=== PATIENT | female | born 1970 | race African-American/Black ===

== ENCOUNTER 2017-02-02 13:29 | Inpatient (IN) | payer MEDICAID ==
[2017-02-02] VITALS (11 sets, daily range): BP systolic 106–132; BP diastolic 52–64; Ht 162.6 cm; Wt 106.4 kg
[~2017-02-02] VITALS: Ht 162.6 cm; Wt 106.4 kg
--- NOTE | 2017-02-02 00:02 | NUR ---
VITAL SIGNS TAKEN AT THIS TIME. IV SITE INSPECTED, NO REDNESS, SWELLING, RASH OR INFILTTATION NOTED. IV RATE CHANGED TO 75ML/HR. NURSE REMAINS AT BEDSIDE.
[2017-02-02 14:28] LABS: BASOPHILS 0.3 % (0-2); EOSINOPHILS 1.2 % (0-7); IMMATURE GRANULOCYTES 0.8 % (0-5); LYMPHOCYTES 22.4 % (15-50); MCHC 26.4 g/dL (31.0-37.0); MCV 59.9 fL (80.0-100.0); MEAN PLATELET VOLUME 8.6 fL (7.4-10.4); NEUTROPHILS 67.3 % (40-80); PLATELET COUNT 473 10x3/uL (130-400); RBC 2.72 10x6/uL (4.00-5.40); RDW 20.3 % (11.5-14.5); WBC 14.9 10x3/uL (4.8-10.8)
[2017-02-02 14:37] LABS: HEMATOCRIT 16.3 % (36.0-48.0); HEMOGLOBIN 4.3 g/dL (12-16); MCH 15.8 pg (26.0-34.0)
[2017-02-02 14:40] LABS: ALBUMIN 3.4 g/dL (3.4-5.0); ANION GAP 13.7 mmol/L (8-16); BILIRUBIN - TOTAL 0.29 mg/dL (0.2-1.3); CALCIUM 8.7 mg/dL (8.5-10.1); CARBON DIOXIDE 23.8 mmol/L (21.0-32.0); CREATININE - SERUM 0.9 mg/dL (0.6-1.3); POTASSIUM - SERUM 3.5 mmol/L (3.5-5.1)
[2017-02-02 15:28] LABS: APTT 29.4 SECONDS (22.8-39.4); INR 1.04 (0.85-1.17); PROTIME 13.4 SECONDS (11.6-15.0)
--- NOTE | 2017-02-02 16:56 | NUR ---
RECEIVED FROM ER VIA WHEELCHAIR. ORIENTED TO ROOM 1278. DESIRES PERICARE AT THIS TIME SECONDARY TO VAGINAL BLEEDING. ITEMS GIVEN FOR SELF CLEANING. PERIPADS AND DISPOSABLE UNDERWEAR GIVEN. CONTACTED DR ORTIZ FOR ADDITIONAL ORDERS.
--- NOTE | 2017-02-02 17:44 | NUR ---
PT DECLINES SECOND IV LINE FOR BLOOD TRANSFUSION. CONTACTED DR ORTIZ. TO GIVE PREMARIN IV PUSH. THEN HANG THE BLOOD. GIVE NEXT DOSE PREMARIN BETWEEN UNITS OF BLOOD. CONTACTED SOFÍA PHARMACIST TO CONFIRM. SHOULD NOT BE A PROBLEM IF LINE IS FLUSHED BETWEEN MEDICATION AND UNIT OF BLOOD. AWARE, NOT TO INFUSE BLOOD AND MEDICATION TOGETHER.
--- NOTE | 2017-02-02 18:05 | NUR ---
AFTER COMPLETING ADMISSION ASSESSMENTS, PT REPORTS HAVING HAD A BLACK KENYA RING THAT SHE REMOVED WHEN HAVING AN IV PLACED IN THE EMERGENCY ROOM. CONTACTED ER STAFF AND NO RING HAS BEEN FOUND. PT LOOKED THROUGH BAG OF CLOTHING SHE BROUGHT FROM ER AND HAS NOT LOCATED IT AT THIS TIME OF 1830. WILL CONTACT INTERVENTIONAL CARDIOLOGIST.
--- NOTE | 2017-02-02 18:15 | NUR ---
PREPARING TO GIVE PREMARIN IVP, 500 ML NS BAG HUNG, IV OPEN WITH INFUSION OF NS INTO LEFT ANTECUBITAL. PT C/O INCREASED BURNING AT IV SITE. IV FLUIDS SLOWED AND PATIENT STILL C/O BURNING AT IV SITE. PREMARIN NOT GIVEN. PLAN RESITE IV.
--- NOTE | 2017-02-02 18:30 | NUR ---
ATTEMPTED TO START IV IN RIGHT WRIST WITH 18 G CATH WITH RETURN OF BLOOD. CATHETER WOULD NOT THREAD. CATH REMOVED. WILL HAVE SECOND NURSE ATTEMPT IV.
--- NOTE | 2017-02-02 18:44 | NUR ---
Liane HERRMANN RN ATTEMPTED TO START IV IN RIGHT HAND WITH 18 G CATH. NO FLASH RETURNED AND CATH WAS REMOVED. WILL HAVE ON-COMING RN ATTEMPT START.
--- NOTE | 2017-02-02 19:00 | NUR ---
Liane CORTES, BRADLY ON L&D. ASKED SOCIAL SERVICE WORKER TO ATTEMPT IV START. ATTEMPTED X 1 IN LEFT FA WITH 20 G 1 03/29 LENGHT WITHOUT SUCCESS. SOCIAL SERVICE WORKER WILL LOOK FOR 1 INCH IV CATH IN OR AND ATTEMPT SECOND TIME.
--- NOTE | 2017-02-02 19:00 | NUR ---
PATIENT REPORT RECEIVED FROM AM SHIFT TO ASSUME PATIENT CARE.
--- NOTE | 2017-02-02 19:10 | NUR ---
PATIENT MEGHAN BALLESTEROS IN BED AT THIS TIME, ANESTHESIA AT BEDSIDE ATTEMPTING TO START AN IV. PATIENT STATES THAT HER IV FROM THE ER IS BOTHERING HER AND SHE HAS SOME INTERMITTENT CHEST PAIN 3/10. PT STATES THAT IT MAY BE ANXIETY.
--- NOTE | 2017-02-02 19:36 | NUR ---
PREMARIN 25 MG GIVEN SLOW IVP OVER 5 MINS; 1 ML/MIN WITH NS INFUSING PER ALARIS PUMP. IV DECREASED TO 10 ML/HR AFTER COMPLETION OF IVP. JAYDON WELL WITHOUT COMPLAINTS OF PAIN OR DISCOMFORT AT IV SITE. RECEIVED PHENERGAN 25 MG PO EARLIER FOR PREVENTION OF NAUSEA. PT VERBALIZED UNDERSTANDING OF MEDICATION AND POSSIBLE SIDE EFFECTS. SIDE RAILS UP X 2, CALL LIGHT IN REACH.
--- NOTE | 2017-02-02 20:06 | NUR ---
PATIENT PRE MEDICATED WITH TYLENOL 1000MG PO PER MD ORDER
--- NOTE | 2017-02-02 20:07 | NUR ---
PATIENT PRE MEDICATED WITH BENADRYL 50MG PO PER MD ORDERS.
--- NOTE | 2017-02-02 20:22 | NUR ---
BLOOD FROM LAB REVIEWED WITH ELVIRA HERNANDEZ TO INCLUDE PATIENT ID BAND, PT 1970 PATIENT BLOOD BAND NUMBER [id number], PT BLOOD TYPE, OPOS, UNIT NUMBER [id number] ADN UNIT EXPIRATION DATE 02/13/2017.
--- NOTE | 2017-02-02 20:24 | NUR ---
PRE TRANSFUSION VITALS SIGNS TAKEN AT THIS TIME.
--- NOTE | 2017-02-02 20:28 | NUR ---
BLOOD TRANSFUSION STARTED AT THIS TIME AT 50ML/HR. PATIENT TEACHING ON REACTION SIGNS AND SYMPTOMS. PT VERBALIZES UNDERSTANDING.
--- NOTE | 2017-02-02 20:43 | NUR ---
PATIENT VITAL SIGNS TAKEN, IV SITE INSPECTED WITH NO REDNESS OR INFILTRATION NOTED. PT DENIES ANY SYMPTOMS OF REACTION, RATE CHANGED TO 75ML/HR AT THIS TIME.
--- NOTE | 2017-02-02 20:58 | NUR ---
PATIENT STATES A SLIGHT TINGLING TO HER LEFT HAND AT THIS TIME, NO OTHER PROBLEMS IDENTIFIED. IV SITE INSPECTED WITH NO REDNESS OR RASH NOTED. VITAL SIGNS TAKEN. IV RATE CHANGED TO 150ML/HR.
--- NOTE | 2017-02-02 21:28 | NUR ---
PATIENT RESTING QUIETLY WITH EYES CLOSED, EASILY AROUSED TO VERBAL. DENIES ANY PROBLEMS AT THIS TIME. VS TAKEN, IV SITE INSPECTED, NO REDNESS OR RASH OR INFILTRATION NOTED. INFUSION REMAINS AT 150ML/HR PT DENIES NEEDS AT THIS TIME.
--- NOTE | 2017-02-02 21:58 | NUR ---
PATIENT RESTING QUIETLY WITH EYES CLOSED. IV SITE INSPECTED, NO REDNESS,SWELLING OR RASH NOTED. VS TAKEN AND BLOOD TRANSFUSION RATE CHANGED TO 200ML/HR.
--- NOTE | 2017-02-02 22:55 | NUR ---
BLOOD TRANSFUSION COMPLETED, VOLUME INFUSED 359ML. TUBING DISCONNECTED AND IV FLUSHED WITH 10ML NS. PATIENT HAS HAD NO REACTION TO THE TRANSFUSION. VS TAKEN. PT RESTING QUIETLY IN BED, BED LOCKED IN LOW POSITION, TRAY TABLE AND CALL CALHOUN IN REACH.
--- NOTE | 2017-02-02 23:13 | NUR ---
PATIENT FARTUN PAD WITH SMALL AMOUNT OF BLOOD, PT DOESNT DESIRE TO CHANGE IT AT THIS TIME.
--- NOTE | 2017-02-02 23:40 | NUR ---
PATIENT IDENTIFICATION AND BLOOD UNIT VERIFIED WITH ELVIRA WHEELER TO INCLUDE PATIENT NAME, , WRIST BLOOD BAND NUMBER [id number], O POS, BLOOD UNIT# [id number], EXPIRATION DATE 02/13/17.
--- NOTE | 2017-02-02 23:47 | NUR ---
PRE TRANSFUSION VITAL SIGNS TAKEN AT THIS TIME.
--- NOTE | 2017-02-02 23:49 | NUR ---
BLOOD TRANSFUSION STARTED AT THIS TIME AT 50ML/HR
[2017-02-03] VITALS (40 sets, daily range): BP systolic 101–137; BP diastolic 51–83
--- NOTE | 2017-02-03 00:02 | NUR ---
VITAL SIGNS TAKEN, IV SITE INSPECTED, NO REDNESS,SWELLING, RASH OR INFILTRATION NOTED. RATE CHANGED TO 75ML/HR. THIS NURSE REMAINS AT BEDSIDE.
--- NOTE | 2017-02-03 00:17 | NUR ---
VITAL SIGNS TAKEN. IV SITE INSPECTED, NO REDNESS, SWELLING, RASH OR INFILTRATION NOTED. PT EXHIBITS NO SIGNS OF BLOOD TRANSFUSION REACTION. RATE CHANGED TO 150ML/HR. THIS NURSE REMAINS AT THE BEDSIDE.
--- NOTE | 2017-02-03 00:32 | NUR ---
VITAL SIGNS TAKEN. IV SITE INSPECTED, NO REDNESS, SWELLING, RASH OR INFILTRATION NOTED. PATIENT REQUESTING SOME SHERBERT. THIS NURSE REMAINS AT BEDSIDE.
--- NOTE | 2017-02-03 00:40 | NUR ---
ELVIRA HERNANDEZ BROUGHT SHERBERT TO PATIENT AT THIS TIME PER REQUEST.
--- NOTE | 2017-02-03 00:47 | NUR ---
VITAL SIGNS TAKEN. IV SITE INSPECTED, NO REDNESS,SWELLING, RASH OR INFILTRATION NOTED. BED LOCKED IN LOW POSITION, CALL CALHOUN AND TRAY TABLE IN REACH. PT ENCOURAGED TO CALL WITH ANY NEEDS.
--- NOTE | 2017-02-03 01:19 | NUR ---
PATIENT ASSISTED UP TO BATHROOM AT THIS TIME, VOIDED 400ML CLEAR YELLOW URINE. PAD WITH SMALL AMOUNT OF BLOOD NOTED. PATIENT BACK TO BED. BED LOCKED IN LOW POSITION, CALL CALHOUN AND TRAY TABLE IN REACH. PT ENCOURAGED TO CALL WITH ANY NEEDS
--- NOTE | 2017-02-03 01:31 | NUR ---
VOIDED 400CC IN [facility]. STATES SHE IS HAVING ABD. CRAMPING. REPORTS THAT SHE CHANGED HER FARTUN PAD AND IT WAS LESS THAN 1/2 SATURATED. OFFERED NOURISHMENTS THAT WERE AVAILABLE AND PT. DECLINED.
--- NOTE | 2017-02-03 01:47 | NUR ---
DR ORTIZ CALLED AND INFORMED OF PATIENT REQUEST FOR MEDICATION FOR ABDOMINAL CRAMPING PAIN. NEW ORDERS RECEIVED FOR TORADOL 30MG IVP Q 6HRS PRN AND DEMEROL 25MG IM WITH PHENERGAN 12.5 MG IM FOR BREAKTHROUGH PAIN.
--- NOTE | 2017-02-03 02:05 | NUR ---
PHENERGAN 25MG PO ADMINISTERED AT THIS TIME PRIOR TO PREMARIN PER MD ORDERS.
--- NOTE | 2017-02-03 02:45 | NUR ---
BLOOD TRANSFUSION COMPLETED, IV FLUSHED WITH 10ML NS. PREMARIN 25 MG IN 5ML NS GIVEN SLOW IVP OVER 5 MINUTES, IV FLUSHED WITH 10ML NS AFTER ADMINISTRATION
--- NOTE | 2017-02-03 03:40 | NUR ---
VERIFIED PATIENT INFORMATION AND BLOOD UNIT WITH ELVIRA WHEELER AT PATIENTS BEDSIDE TO INCLUDE PATIENT NAME, , BLOOD WRIST BAND #[id number], O POS, BLOOD UNIT# [id number] EXPIRATION DATE 02/22/2017.
--- NOTE | 2017-02-03 03:45 | NUR ---
PRE-TRANSFUSION VITALS TAKEN AT THIS TIME
--- NOTE | 2017-02-03 04:08 | NUR ---
VITAL SIGNS TAKEN, PT RESTING QUIETLY WITH EYES CLOSED, EASILY AROUSED TO VERBAL. STATES THAT HER PAIN IS UNCHANGED. ENCOURAGED HER TO REPOSITION, EXTRA PILLOW PROVIDED. IV SITE INSPECTED, NO REDNESS,SWELLING, RASH OR INFILTRATION NOTED. IV RATE CHANGED TO 75ML/HR
--- NOTE | 2017-02-03 04:22 | NUR ---
PATIENT SLEEPING, AUDIBLE SNORING NOTED. VITAL SIGNS TAKEN. IV SITE INSPECTED, NO REDNESS, SWELLING, RASH OR INFILTRATION NOTED.
--- NOTE | 2017-02-03 04:37 | NUR ---
PATIENT SLEEPING, EASILY AROUSED TO VERBAL. VITAL SIGNS TAKEN. IV SITE INSPECTED, NO REDNESS, SWELLING, RASH OR INFILTRATION NOTED. IV RATE CHANGED TO 150 ML/HR
--- NOTE | 2017-02-03 04:52 | NUR ---
PATIENT SLEEPING. RESPIRATIONS EVEN AND NON LABORED. VITAL SIGNS TAKEN AND IV SITE INSPECTED. NO REDNESS, SWELLING, RASH OR INFILTRATION NOTED. CALL CALHOUN AND TRAY TABLE IN REACH
--- NOTE | 2017-02-03 05:22 | NUR ---
PATIENT SLEEPING, IV SITE INSPECTED, NO REDNESS, SWELLING, RASH OR INFILTRATION NOTED. NO SIGNS OR SYMPTOMS OF TRANSFUSION REACTION NOTED.
--- NOTE | 2017-02-03 06:26 | NUR ---
BLOOD TRANSFUSION COMPLETED, IV LINE FLUSHED WITH NS AND DC'D. SALINE LOCK REMAINS IN PLACE. VITAL SIGNS TAKEN. PATIENT DENIES NEEDS.
--- NOTE | 2017-02-03 06:43 | NUR ---
PATIENT INFORMATION AND BLOOD UNIT INFORMATION VERIFIED WITH ELVIRA WHEELER TO INCLUDE PATIENT NAME, , WRIST BAND #[id number], O POS, BLOOD UNIT# [id number], EXPIRATION DATE 02/15/17.
--- NOTE | 2017-02-03 06:46 | NUR ---
PRE-TRANSFUSION VITAL SIGNS TAKEN AT THIS TIME
--- NOTE | 2017-02-03 06:48 | NUR ---
BLOOD TRANSFUSION INITIATED AT 50ML/HR. THIS NURSE REMAINS AT BEDSIDE
--- NOTE | 2017-02-03 07:03 | NUR ---
VITAL SIGNS TAKEN, IV SITE INSPECTED, NO REDNESS, SWELLING, RASH OR INFILTRATION NOTED. IV RATE CHANGED TO 75ML/HR.
--- NOTE | 2017-02-03 07:14 | NUR ---
BEDSIDE REPORT TO AM SHIFT TO ASSUME PATIENT CARE.
--- NOTE | 2017-02-03 07:15 | NUR ---
ASSUMED CARE OF THIS PATIENT. SHIFT ASSESSMENT COMPLETED. ALERT AND ORIENTED. 3/10 CRAMPING. DENIES NEEDING ANYTHING. TRACE PRETIBIAL EDEMA NOTED IN LEFT LEG. ENCOURAGED FREQUENT CHANGES OF POSITION AND MOVEMENT OF LEGS. VERBALIZED UNDERSTANDING. 4TH BAG PRBC INFUSING WITHOUT DIFF. NO SIGNS OF ADVERSE REACTION. INFUSING AT 75 ML/HR PER ALARIS PUMP. SIDE RAILS UP X 2, CALL LIGHT IN REACH.
[2017-02-03] MEDS ORDERED: ACETAMINOPHEN500 M1 PO (07:18)
--- NOTE | 2017-02-03 07:54 | NUR ---
UP TO BATHROOM FOR ORAL AND PERICARE PER SELF. IV BLOOD PRODUCT INCREASED TO 175 ML/HR PER ALARIS PUMP. TEMP AND VS NORMAL LIMITS. NO ADVERSE REACTIONS NOTED. REGULAR DIET SERVED. SITTING ON EDGE OF BED. NO REQUESTS. CALL LIGHT IN REACH. PARTIAL LINEN CHANGE WAS COMPLETED.
--- NOTE | 2017-02-03 08:32 | NUR ---
c/0 3-10 FRONTAL HEADACHE "LIKE A COLD HEADACHE". DISCUSSED PAIN MANAGEMENT OPTIONS. STATES "I'LL LET YOU KNOW IF I WANT SOMETHING." REQUESTED LIGHTS ON LOW. WATCHING TV. SIDE RAILS UP X 2. CALL LIGHT IN REACH. [place] HAT EMPTIED. 300 ML URINE WITH TWO DOLLAR SIZE DARK RED CLOTS IN URINE. PERIPAD WAS CHANGED BY PATIENT. SMALL AMOUNT BRIGHT RED BLOOD NOTED ON PERIPANTS AND PAD. NO SATURATION OF PAD NOTED. THIS WILL BE PAD # 2 SINCE ADMIT.
--- NOTE | 2017-02-03 10:10 | NUR ---
BLOOD TRANSFUSION COMPLETE. NEW IV LINE HUNG IN PREPARATION FOR 5TH PRBC UNIT. RECEIVED LASIX 20 MG PO ORDERED. LUNGS CLEAR. VS OBTAINED. C/O CONTINUE FRONTAL ROBLES AND REQUEST PAIN MEDICATION. WAITING ON PHARMACY TO BRING TO UNIT. SIDE RAILS UP X 2, CALL LIGHT IN REACH.
--- NOTE | 2017-02-03 10:25 | NUR ---
CONTACTED PHARMACY AND REQUESTED FIORICET ORDERED BY . THEY WILL BRING TO L&D. PT NOTIFIED.
--- NOTE | 2017-02-03 10:48 | NUR ---
FIORICET 2 TABS GIVEN PO FOR RELIEF OF FRONTAL ROBLES. 5TH UNIT PRBC STARTED AT THIS TIME. PLACED ON ALARIS PUMP AT 75 ML/HR FOR INITIAL TRANSFUSION. SIDE RAILS UP X 2, CALL LIGHT IN REACH. RN REMAINS AT BEDSIDE FOR ASSESSMENT.
--- NOTE | 2017-02-03 11:14 | NUR ---
STAYED IN ROOM WITH PT DURING INITIAL TRANSFUSION START. AROUSED FROM SLEEP FOR TEMP AND VS AT THIS TIME. ROBLES IS NOW 4/. DENIES PROBLEM. NO ITCHING, RASH NOTED. SIDERAILS UP X 2, CALL LIGHT IN REACH. ENCOURAGED TO CONTINUE TO REST OR SLEEP NEEDED. BLOOD INCREASED TO 150 ML/HR ON ALARIS PUMP.
--- NOTE | 2017-02-03 11:50 | NUR ---
AROUSES EASILY FROM SLEEP. SAYS ROBLES IS NOW 05/05. FEELS DROWSY STATES "THAT'S PROBABLY WHY I'M SLEEPING". TO CALL IF ANYTHING IS NEEDED. BLOOD INFUSING WITHOUT DIFFICULTY. NO ADVERSE REACTIONS NOTED. SIDERAILS UP X 2, CALL LIGHT IN REACH.
--- NOTE | 2017-02-03 12:05 | NUR ---
SITTING UP IN BED EATING LUNCH.
--- NOTE | 2017-02-03 13:23 | NUR ---
UNIT 5 PRBC TRANSFUSION COMPLETED. NEW Y-TUBE SET HUNG AND NS INFUSING TO FLUSH IV PORT PRIOR TO NEXT UNIT. SITTING UP IN BED VISITORS IN ROOM. NO REQUEST OR PROBLEMS AT THIS TIME. SIDERAILS UP X 2. CALL LIGHT IN REACH. INSTRUCTED SHE HAS ONE MORE UNIT TO INFUSE THEN TWO HOUR HCT THEN SHE CAN GO HOME. VERBALIZED UNDERSTANDING. DECLINES NEED TO VOID.
--- NOTE | 2017-02-03 13:37 | NUR ---
STATES "MY CHEST IS BURNING" POINTING TO UPPER LEFT CHEST AREA. SAYS IT'S NOT HER SKIN. "LIKE MY HEART". UNABLE TO ASSIGN PAIN NUMBER STATES "IT'S LIKE A CRAMP." ALSO SAID IT MIGHT BE LIKE INDIGESTION. 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 LUNGS CLEAR, HEART RATE REG, PULSE OX 100%. NO DISTRESS NOTED. HOB IN HIGH FOWLERS. ATE ROASTBEEF FOR LUNCH. WILL CONTACT
--- NOTE | 2017-02-03 13:48 | NUR ---
TALKED TO DR ORTIZ. ORDERS RECIEVED FOR GI COCKTAIL.
--- NOTE | 2017-02-03 14:00 | NUR ---
6TH UNIT PRBC STARTED AT 75 ML PER ALARIS PUMP. RN STAYED IN ROOM DURING INITIAL TRANSFUSION.
--- NOTE | 2017-02-03 14:12 | NUR ---
ASSISTED UP TO BATHROOM TO VOID. TOLERATED WELL. NO C/O OTHER THAN "IT DOES FEEL LIKE HEARTBURN, LIKE AIR RIGHT HERE" POINTING TO LOWER ESOPHAGUS AREA. WAITING ON GI COCKTAIL FROM PHARMACY. VOIDED 300 CC YELLOW URINE. SCANT BLOOD ON PAD. THIS WAS PAD # 3 SINCE ARRIVAL.
--- NOTE | 2017-02-03 14:29 | NUR ---
SITTING ON EDGE OF BED. NO ADVERSE TRANSFUSION REACTIONS SYMPTOMS NOTED. ALARIS PUMP INCREASED TO 150 ML/HR. RECEIVED GI COCKTAIL FROM PHARMACY.
--- NOTE | 2017-02-03 14:49 | NUR ---
SITTING UP IN EDGE OF BED. SAYS THROAT IS NOW NUMB. DENIES BURNING IN CHEST. RE-EXPLAINED THAT IS PURPOSE OF THE GI COCKTAIL. VERBALIZED UNDERSTANDING. DENIES NEEDING ANYTHING AT THIS TIME.
--- NOTE | 2017-02-03 15:47 | NUR ---
LAYING IN BE ON RIGHT SIDE. APPROX 100 ML BLOOD LEFT TO INFUSE. DENIES PROBLEMS OR NEEDING ANYTHING AT THIS TIME. SIDERAILS UP X 2. CALL LIGHT IN REACH. DENIES HEADACHE.
--- NOTE | 2017-02-03 16:15 | NUR ---
6TH UNIT PRBC TRANSFUSION COMPLETED. VS OBTAINED. NO ADVERSE REACTIONS NOTED. LUNGS CLEAR. DENIES PAIN OR ANY COMPLAINTS. DESIRES TO WAIT ON SHOWER AFTER GETTING HOME. DECLINED FLU VACCINE STATING SHE NEEDS SECOND HEP B VACCINE AND "THEY" TOLD HER TO WAIT ON FLU VACCINE. 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 VERBAL AND WRITTEN INFORMATION WAS GIVEN REGARDING PROVERA PO PRESCRIBED BY DR ORTIZ. ALSO INFORMED SHE WILL HAVE MOTRIN RX FOR CRAMPING. EXPRESSED SATISFACTION WITH THIS FOR PAIN MANAGEMENT OF CRAMPS. PLAN DC HOME IN TWO HOURS AFTER HCT HAS BEEN DRAWN BY LAB.
--- NOTE | 2017-02-03 16:36 | NUR ---
IV DC'D WITH CATH TIP INTACT. SITTING UP IN BED. REQUESTED LIGHTS ON LOW. WAITING ON DINNER. SIDERAILS UP X 2, CALL LIGHT IN REACH.
[2017-02-03] MEDS ORDERED: IBUPROFEN600 MG PO (16:48)
[2017-02-03] MEDS ORDERED: PROVERA10 MG PO (16:54)
[2017-02-03] MEDS ORDERED: IBUPROFEN800 MG PO (16:59)
--- NOTE | 2017-02-03 17:22 | NUR ---
SITTING UP IN BED EATING DINNER AND TALKING ON PHONE. NO REQUESTS. CALL LIGHT IN REACH.
--- NOTE | 2017-02-03 18:09 | NUR ---
DC TEACHING COMPLETED TO INCLUDE SIGNS OF INFECTIONS, ADVERSE REACTIONS TO BLOOD TRANSFUSION, VAGINAL BLEEDING, MEDICATION ADMINISTRATION, AND FOLLOW-UP. TO CONTACT MD IF SOB, CHESTPAIN, DIZZINESS, INCREASED TEMP > 100.4, RASH, CHILLS, INCREASED VAGINAL BLEEDING OR PAIN, DECREASED URINATION OR BLOOD IN URINE NOT FROM VAGINA OR TO ER NEEDED. TO CALL SUNDAY TO SCHEDULE F/U APPOINTMENT FOR NEXT WEEK. VERBALIZED UNDERSTANDING. LAB HERE TO DRAW HCT. PLAN DC TO CAR WHEN FAMILY ARRIVES.
--- NOTE | 2017-02-03 18:30 | NUR ---
DC'D AMBULATORY TO CAR. DECLINED WHEELCHAIR. FAMILY MEMBER IS DRIVING.
--- NOTE | 2017-03-28 06:56 | DS ---
PATIENT:KASHIF ARCHER :74 MEDICAL RECORD: [id number] DISCHARGE SUMMARY ADMISSION DATE: 02/02/17 DISCHARGE DATE: 02/03/17 DATE OF ADMISSION: 02/02/2017. DATE OF DISCHARGE: 02/03/2017. ADMISSION DIAGNOSES: Menorrhagia to anemia. DISCHARGE DIAGNOSES: 1. Menorrhagia. 2. Leiomyomata uteri. 3. Anemia ATTENDING: Conor Ortiz MD HISTORY OF PRESENT ILLNESS: See the H&P on the chart. SUMMARY OF HOSPITALIZATION: The patient was admitted to the hospital for menorrhagia to anemia and received intravenous Premarin. The patient also received blood transfusion. The patient has decreased bleeding at the time of discharge and is sent home on tapering dose of control pills. The patient has been asked to follow up in the clinic within the next week. The patient also will receive iron supplementation. Side effects of medication have been described. Bleeding precautions reviewed. TRANSINT:[id number] Voice Confirmation ID: [id number] DOCUMENT ID: [id number] CONOR ORTIZ MD at 0656 CC: [id number] DICTATION DATE: 03/23/17 0849 SENIOR RUBY DEVELOPER: 03/23/17 1425 DIS IN 02/03/17 [id number] [place] [address]
== END 2017-02-03 18:30 | disposition home or self-care (01) | DRG 761 ==
LOC: D.ER 13:29 → D.LD 16:25
PROVIDERS: Emergency Medicine; Physician Assistant; ADMIT Obstetrics & Gynecology
DX: N92.1 Excessive and frequent menstruation with irregular cycle (principal); D25.9 Leiomyoma of uterus, unspecified; D50.0 Iron deficiency anemia secondary to blood loss (chronic)

== ENCOUNTER 2017-02-09 22:31 | Emergency (ER) | payer MEDICAID ==
[2017-02-02 17:22] VITALS: BMI 40.2
[~2017-02-09 22:31] MED LIST: ACETAMINOPHEN500 M1 PO; IBUPROFEN600 MG PO; IBUPROFEN800 MG PO; PROVERA10 MG PO
[2017-02-09 23:04] LABS: BASOPHILS 0.2 % (0-2); EOSINOPHILS 1.8 % (0-7); HEMATOCRIT 35.8 % (36.0-48.0); IMMATURE GRANULOCYTES 0.2 % (0-5); LYMPHOCYTES 23.8 % (15-50); MCH 23.5 pg (26.0-34.0); MCHC 30.7 g/dL (31.0-37.0); MCV 76.3 fL (80.0-100.0); MEAN PLATELET VOLUME 9.1 fL (7.4-10.4); MONOCYTES 6.4 % (2-11); NEUTROPHILS 67.6 % (40-80); RBC 4.69 10x6/uL (4.00-5.40); WBC 12.9 10x3/uL (4.8-10.8)
[2017-02-09 23:05] LABS: PLATELET COUNT 247 10x3/uL (130-400)
[2017-02-10 03:00] LABS: ALBUMIN 3.5 g/dL (3.4-5.0); ALKALINE PHOSPHATASE 118 U/L (46-116); ALT (SGPT) 26 U/L (10-68); BILIRUBIN - TOTAL 0.39 mg/dL (0.2-1.3); CALC OSMOLALITY 276 mosm/kg (275-300); CARBON DIOXIDE 23.4 mmol/L (21.0-32.0); CHLORIDE - SERUM 103 mmol/L (98-107); CREATININE - SERUM 0.9 mg/dL (0.6-1.3); GLUCOSE 119 mg/dL (74-106); PROTEIN - SERUM 8.2 g/dL (6.4-8.2); SODIUM 138 mmol/L (136-145); UREA NITROGEN 13 mg/dL (7-18); eGFR NON AFRICAN AMERICAN 72 mL/min (90-120)
[2017-02-10 03:09] LABS: CKMB 0.3 U/L (0.0-3.6); CREATINE KINASE 99 UL (21-215)
[2017-02-10 03:20] LABS: TROPONIN-I < 0.017 ng/mL (0.000-0.060)
== END 2017-02-10 04:29 | disposition home or self-care (01) ==
LOC: D.ER 22:31
PROVIDERS: Family Medicine
DX: N93.9 Abnormal uterine and vaginal bleeding, unspecified (principal); D25.9 Leiomyoma of uterus, unspecified; T38.5X5A Adverse effect of other estrogens and progestogens, initial encounter; Y92.89 Other specified places as the place of occurrence of the external cause; R00.1 Bradycardia, unspecified

== ENCOUNTER 2017-07-25 12:32 | Emergency (ER) | payer MEDICAID ==
[2017-02-02 17:22] VITALS: BMI 40.2
[2017-07-25 14:23] LABS: ALBUMIN 3.6 g/dL (3.4-5.0); ALKALINE PHOSPHATASE 120 U/L (46-116); ALT (SGPT) 20 U/L (10-68); BILIRUBIN - TOTAL 0.27 mg/dL (0.2-1.3); CALC OSMOLALITY 272 mosm/kg (275-300); CALCIUM 9.3 mg/dL (8.5-10.1); CARBON DIOXIDE 24.1 mmol/L (21.0-32.0); CHLORIDE - SERUM 102 mmol/L (98-107); CREATININE - SERUM 0.7 mg/dL (0.6-1.3); GLUCOSE 100 mg/dL (74-106); PROTEIN - SERUM 8.6 g/dL (6.4-8.2); SODIUM 137 mmol/L (136-145); UREA NITROGEN 10 mg/dL (7-18); eGFR NON AFRICAN AMERICAN > 90 mL/min (90-120)
[2017-07-25 15:02] LABS: HEMATOCRIT 36.8 % (36.0-48.0); HEMOGLOBIN 11.3 g/dL (12-16); LYMPHOCYTES 37.7 % (15-50); MCH 22.3 pg (26.0-34.0); MCHC 30.7 g/dL (31.0-37.0); MCV 72.6 fL (80.0-100.0); MEAN PLATELET VOLUME 10.8 fL (7.4-10.4); NEUTROPHILS 55.6 % (40-80); PLATELET COUNT 285 10x3/uL (130-400); RBC 5.07 10x6/uL (4.00-5.40); RDW 21.1 % (11.5-14.5); WBC 7.7 10x3/uL (4.8-10.8)
[2017-08-07] MEDS ORDERED: PRENATABS RX TA1 TAB PO (09:16)
== END 2017-07-25 16:14 | disposition home or self-care (01) ==
LOC: D.ER 12:32
PROVIDERS: Family Medicine
DX: N93.9 Abnormal uterine and vaginal bleeding, unspecified (principal); Z86.2 Personal history of diseases of the blood and blood-forming organs and certain disorders involving the immune mechanism

== ENCOUNTER 2017-08-08 07:20 | Day surgery (SDC) | payer MEDICAID ==
[2017-08-07 09:55] LABS: BASOPHILS 0.4 % (0-2); HEMATOCRIT 32.5 % (36.0-48.0); HEMOGLOBIN 9.8 g/dL (12-16); IMMATURE GRANULOCYTES 0.1 % (0-5); LYMPHOCYTES 31.5 % (15-50); MCH 22.7 pg (26.0-34.0); MCHC 30.2 g/dL (31.0-37.0); MCV 75.4 fL (80.0-100.0); MEAN PLATELET VOLUME 9.8 fL (7.4-10.4); MONOCYTES 8.6 % (2-11); NEUTROPHILS 57.4 % (40-80); PLATELET COUNT 275 10x3/uL (130-400); RBC 4.31 10x6/uL (4.00-5.40); RDW 20.3 % (11.5-14.5); WBC 6.9 10x3/uL (4.8-10.8)
[~2017-08-08] VITALS: Ht 162.6 cm; Wt 107.0 kg
--- NOTE | ~2017-08-08 | OP ---
PATIENT NAME: KASHIF ARCHER MEDICAL RECORD: [id number] :74 LOCATION:D[facility] ADMISSION DATE: SURGEON: CONOR ORTIZ MD DATE OF OPERATION: 08/08/2017 PREOPERATIVE DIAGNOSES: 1. Menorrhagia. 2. Fibroid uterus. POSTOPERATIVE DIAGNOSES: 1. Menorrhagia. 2. Fibroid uterus. PROCEDURE: 1. Dilation and curettage with hysteroscopy. 2. NovaSure. SURGEON: Conor Ortiz MD ANESTHESIOLOGIST: Eugenio Pelaez MD ANESTHESIA: General anesthetic with endotracheal intubation. FINDINGS: Uterus is enlarged and sounds to 9 cm. The setting for NovaSure device is 4 cm width and 6.5 cm depth. At the time of curettage, moderate tissue returned. SPECIMENS REMOVED: Endometrial curettings. SPECIMEN DISPOSITION: Pathology. ESTIMATED BLOOD LOSS: Less than or equal to 50 cc. FLUIDS: 300 cc of lactated Ringer's. URINE OUTPUT: Quantity sufficient void prior to the procedure. COMPLICATIONS: None. DRAINS: None. INDICATIONS: The patient is a 46-year-old female with menorrhagia. The patient has been counseled and desires conservative therapy. The patient is consented for a D&C, hysteroscopy with NovaSure. DESCRIPTION OF PROCEDURE: After informed consent was assured, the patient was taken to the operating room where anesthetic was obtained without difficulty. She was placed in stirrups and prepped and draped in usual sterile fashion. The cervix was dilated to accommodate a hysteroscope, which was inserted without difficulty. Both ostia were visualized. The lining is free of any mass. Dilation was completed and curettage was performed with tissue returned. The measurements are now placed for the NovaSure device. The NovaSure device is set and full cycles completed in 1 minute and 2 seconds. The device is now removed. The patient is taken down from the stirrups and sent to the recovery area in stable condition. OPERATIVE REPORT [id number] KASHIF ARCHER TRANSINT:[id number] Voice Confirmation ID: [id number] DOCUMENT ID: [id number] CONOR ORTIZ MD CC: [id number] DICTATION DATE: 08/22/17 0753 ASSISTANT AUDITOR: 08/22/17 0832 [facility] 08/08/17 [id number] [place] [address]
[~2017-08-08 07:20] MED LIST changes: +PRENATABS RX TA1 TAB PO
[2017-08-08] MEDS ORDERED: PROBIOTIC250 MG PO (08:25)
[2017-08-08 08:36] VITALS: BP 142/75; Ht 162.6 cm; Wt 107.0 kg
== END 2017-08-08 13:05 | disposition home or self-care (01) ==
LOC: D.OPS 07:20 → D.PAN 09:15 → D.OPS 09:15
PROVIDERS: Obstetrics & Gynecology
DX: N92.0 Excessive and frequent menstruation with regular cycle (principal); D25.9 Leiomyoma of uterus, unspecified

== ENCOUNTER 2017-12-23 12:20 | Emergency (ER) | payer MEDICAID ==
[~2017-12-23] VITALS: Ht 162.6 cm; Wt 72.6 kg
[~2017-12-23 12:20] MED LIST changes: +PROBIOTIC250 MG PO
[2017-12-23 12:23] VITALS: Ht 162.6 cm; Wt 72.6 kg
[2017-12-23 12:42] LABS: BASOPHILS 0.4 % (0-2); EOSINOPHILS 1.4 % (0-7); HEMATOCRIT 34.8 % (36.0-48.0); IMMATURE GRANULOCYTES 0.2 % (0-5); LYMPHOCYTES 41.4 % (15-50); MCH 25.3 pg (26.0-34.0); MCHC 31.6 g/dL (31.0-37.0); MCV 80.2 fL (80.0-100.0); MEAN PLATELET VOLUME 9.7 fL (7.4-10.4); MONOCYTES 6.6 % (2-11); PLATELET COUNT 306 10x3/uL (130-400); RBC 4.34 10x6/uL (4.00-5.40); RDW 17.3 % (11.5-14.5); WBC 8.3 10x3/uL (4.8-10.8)
[2017-12-23 13:14] LABS: ALBUMIN 3.4 g/dL (3.4-5.0); ALKALINE PHOSPHATASE 112 U/L (46-116); ALT (SGPT) 20 U/L (10-68); BILIRUBIN - TOTAL 0.19 mg/dL (0.2-1.3); CALC OSMOLALITY 278 mosm/kg (275-300); CARBON DIOXIDE 27.3 mmol/L (21.0-32.0); CHLORIDE - SERUM 105 mmol/L (98-107); CREATININE - SERUM 0.9 mg/dL (0.6-1.3); GLUCOSE 108 mg/dL (74-106); POTASSIUM - SERUM 3.5 mmol/L (3.5-5.1); PROTEIN - SERUM 8.2 g/dL (6.4-8.2); SODIUM 140 mmol/L (136-145); UREA NITROGEN 10 mg/dL (7-18); eGFR NON AFRICAN AMERICAN 72 mL/min (90-120)
[2017-12-23 13:27] LABS: CKMB 1.3 U/L (0.0-3.6); CREATINE KINASE 148 UL (21-215); PRO BNP 42 pg/mL (0-125)
[2017-12-23 13:31] LABS: TROPONIN-I < 0.017 ng/mL (0.000-0.060)
[2017-12-23] MEDS ORDERED: FERROUS SULFAT325 MG PO (13:58)
[2017-12-23] MEDS ORDERED: ULTRAM50 MG PO (14:02)
[2017-12-23 14:33] VITALS: BP 147/56
== END 2017-12-23 14:08 | disposition home or self-care (01) ==
LOC: D.ER 12:20
PROVIDERS: Emergency Medicine
DX: R07.89 Other chest pain (principal); D50.9 Iron deficiency anemia, unspecified

== ENCOUNTER 2018-02-04 22:22 | Emergency (ER) | payer MEDICAID ==
[~2018-02-04] VITALS: Ht 162.6 cm; Wt 100.0 kg
[~2018-02-04 22:22] MED LIST changes: +FERROUS SULFAT325 MG PO; +ULTRAM50 MG PO
[2018-02-04 22:33] VITALS: Ht 162.6 cm; Wt 100.0 kg
[2018-02-04] MEDS ORDERED: MECLIZINE HCL25 MG PO (23:05)
[2018-02-04] MEDS ORDERED: MEDROL DOSE PACK4 MG PO (23:05)
[2018-02-05] VITALS: BP 146/88
== END 2018-02-04 23:45 | disposition home or self-care (01) ==
LOC: D.ER 22:22
DX: R42 Dizziness and giddiness (principal); M54.2 Cervicalgia

== ENCOUNTER → 2018-04-19 12:59 | Outpatient (CLI) | payer MEDICAID ==
[2018-02-04 22:33] VITALS: BMI 37.8
[~2018-04-19 12:59] MED LIST changes: +MECLIZINE HCL25 MG PO; +MEDROL DOSE PACK4 MG PO
== END | disposition home or self-care (01) ==
LOC: D.CT 12:59
DX: R22.0 Localized swelling, mass and lump, head (principal)